=== PATIENT | male | born 1950 | race Caucasian/White ===

== ENCOUNTER 2016-03-17 09:36 | Emergency (ER) ==
[2016-03-17 09:48] VITALS: BP 149/78
--- NOTE | 2016-03-17 09:57 | PROVIDER DOCUMENTATION ---
HPI-Rash/Wound/ReCheck - General Chief Complaint: Suture/Staple Removal Stated Complaint: stitches removal Time Seen by Provider: 03/17/16 09:52 Source: patient Allergies/Adverse Reactions: Allergies Allergy/AdvReac Type Severity Reaction Status Date / Time No Known Allergies Allergy Verified 03/07/16 04:31 Home Medications: Lisinopril 20 mg PO DAILY 03/07/16 - History of Present Illness-Dermatology Nature of Presenting Problem: Pt presents today for staple removal. Well healed. Location: reports: scalp Onset/Duration: reports: 1 week ago Context/Associated Symptoms: reports: laceration - Recheck Treated days ago.: 7 Previous Treatment: laceration repair Antibiotics given: none Symptoms since procedure:: reports: no complaints Review of Systems - Adult - REVIEW OF SYSTEMS - ADULT Constitutional: reports: no symptoms reported. denies: chills, fever Eyes: reports: no symptoms reported. denies: discharge, dry eyes Ears, Nose, Mouth & Throat: reports: no symptoms reported. denies: ear discharge, ear pain Cardiovascular: reports: no symptoms reported. denies: chest pain, edema Respiratory: reports: no symptoms reported. denies: chronic cough, cough Gastrointestinal: reports: no symptoms reported. denies: abdominal pain, hematemesis Genitourinary: reports: no symptoms reported. denies: dysuria, discharge Musculoskeletal: reports: no symptoms reported. denies: bone pain, back pain Integumentary: reports: see HPI. denies: mole changes, nail changes Neurological: reports: no symptoms reported. denies: ataxia, dizziness/vertigo Psychiatric: reports: no symptoms reported. denies: anxiety, anti-depressant use Endocrine: reports: no symptoms reported Hematologic/Lymphatic: reports: no symptoms reported Allergic/Immunologic: reports: no symptoms reported All Other Systems: Reviewed and Negative Past History - Adult - PAST MEDICAL HISTORY-ADULT Review of Records: reports: Old Records Reviewed, Nursing Assessment Review, Medications Reviewed, Social history reviewed & non-contributory. Major Childhood Illnesses: reports: denies history Cardiovascular: reports: denies history Respiratory: reports: denies history Gastrointestinal: reports: denies history Obstetrical/Gynecological: reports: denies history Genitourinary: reports: denies history Musculoskeletal: reports: denies history Neurological: reports: denies history Endocrine/Immune: reports: denies history Other Conditions: reports: denies history Physical Exam-General - PHYSICAL EXAM-ADULT Initial Vital Signs Reviewed: Yes - CONSTITUTIONAL General Appearance: appears well, alert, no apparent distress - EYES Eyes: PERRL/EOMI, pink conjunctivae - HEAD, EARS, NOSE, MOUTH & THROAT HENMT: normocephalic/atraumatic, moist mucous membranes, normal ENT inspection - NECK Neck: non-tender, full range of motion, normal inspection - RESPIRATORY Respiratory: chest non-tender, lungs clear, normal breath sounds - CARDIOVASCULAR Cardiovascular: normal peripheral pulses, regular rate, rhythm, no edema - GASTROINTESTINAL (ABDOMEN) Abdominal Exam: normal bowel sounds, non tender, soft - LYMPHATIC Lymphatic: no adenopathy - MUSCULOSKELETAL Back Exam: normal inspection, no CVA tenderness, no vertebral tenderness Extremity: normal range of motion, non-tender, normal gait - SKIN Integumentary: normal turgor, warm/dry, laceration(s) - NEUROLOGIC Neurologic: grossly normal, no motor/sensory deficits - PSYCHIATRIC Psych/Mental Status: normal mood/affect, normal thought content, normal thought process, oriented x 3 Progress - PLAN OF CARE/RESULTS Progress/Plan/Lab Results: Vital Signs Temp Pulse Resp BP Pulse Ox 03/17/16 09:46 97.7 F 71 16 149/78 95 No Known Allergies Allergy (Verified 03/07/16 04:31) Lisinopril 20 mg PO DAILY 03/07/16 Oxycodone/APAP 5 mg/325 mg [Percocet-5] 1 each PO Q4H PRN PRN #10 tablet Sulfamethoxazole/Trimethoprim [Bactrim Ds Tablet] 2 each PO BID #40 tablet 03/07 Departure - Departure Time of Disposition Order: 09:57 DIAGNOSIS: Encounter for removal of colette Disposition: HOME 01 Certified Medical Emergency: Urgent Condition: Good Additional Instructions: Keep area clean and dry. Follow up with your primary care provider. ED Follow Up Instructions: You have been treated by a care provider in the Emergency Department. These instructions are being provided to you so you can have an understanding of how to care for yourself upon discharge. Upon discharge from the Emergency Department, you are responsible for making arrangements for follow-up care by a physician of your choice. Take all prescribed medications as directed. Return to the Emergency Department immediately for any new or worsening symptoms. You may call the Physician Referral phone number at [phone] to obtain a list of Physicians who are taking new patients. Referrals: Lucien Marrufo MD [Primary Care Provider] - Attestation - Physician/ Mid-level Attestation Patient care was provided by Mid-level provider (SOLE CUTTER/PA):: Yes Mid-level provider:: Tanner Lopez Mid-level documentation review:: The Mid-level provider documentation, treatment plan and medical decision making was reviewed by the physician who agrees with all treatment and medical decision making by the MLP.
== END 2016-03-17 10:03 | disposition home or self-care (01) ==
LOC: ED 09:36
DX: S01.01XD Laceration without foreign body of scalp, subsequent encounter (principal); Z79.899 Other long term (current) drug therapy
CPT/HCPCS: 99282

== ENCOUNTER 2016-05-26 11:55 | Emergency (ER) ==
[2016-05-26 12:03] VITALS: BP 167/106
== END 2016-05-26 13:29 | disposition left against medical advice (07) ==
LOC: ED 11:55
DX: M25.512 Pain in left shoulder (principal); Z53.21 Procedure and treatment not carried out due to patient leaving prior to being seen by health care provider; X58.XXXA Exposure to other specified factors, initial encounter

== ENCOUNTER 2016-05-26 21:03 | Emergency (ER) ==
--- NOTE | 2016-05-26 22:08 | PROVIDER DOCUMENTATION ---
HPI-Musculoskeletal Pain/Inj - GENERAL Source: patient - HX OF PRESENT ILLNESS-MUSKULOSKELTAL Quality of Pain: reports: aching Severity in ED: mild Onset/Duration: other (3 weeks) Timing: still present Any recent injury?: Yes Locality of Occurance: Other (gym) Similar Symptoms Previously?: Yes Recently seen or treated by another doctor?: Yes - UPPER EXTREMITY PAIN/INJURY Extremities Pain Location: shoulder: left Context / Method of Injury: reports: unknown Associated Symptoms: reports: denies symptoms <Irina Costa - Last Filed: 05/26/16 22:09> <Yaya Davila - Last Filed: 05/26/16 22:23> - GENERAL Chief Complaint: Extremity Pain Stated Complaint: LT SHOULDER PAIN Time Seen by Provider: 05/26/16 22:02 - HX OF PRESENT ILLNESS-MUSKULOSKELTAL Nature of Presenting Problem: 66 year old M presents to the ED with a cc of left shoulder pain x3 weeks. PT states that the day before the pain began he lifted weights. PT states that he was seen at Urgent Care and prescribed Ibuprofen 800. PT states that he had relief but states that it has now stopped working. PT states that he believes he re-injured it 3 days ago. PT states that it is painful to raise arm above head. (Irina Costa) Review of Systems - Adult - REVIEW OF SYSTEMS - ADULT Constitutional: denies: chills, fever Eyes: reports: no symptoms reported Ears, Nose, Mouth & Throat: reports: no symptoms reported Cardiovascular: reports: no symptoms reported Respiratory: reports: no symptoms reported Gastrointestinal: reports: no symptoms reported Genitourinary: reports: no symptoms reported Musculoskeletal: reports: muscle aches. denies: muscle weakness Integumentary: denies: skin sores/ulcer, skin thickening Neurological: reports: no symptoms reported Psychiatric: reports: no symptoms reported Endocrine: reports: no symptoms reported Hematologic/Lymphatic: reports: no symptoms reported Allergic/Immunologic: reports: no symptoms reported All Other Systems: Reviewed and Negative <Irina Costa - Last Filed: 05/26/16 22:09> Past History - Adult - PAST MEDICAL HISTORY-ADULT Review of Records: reports: Nursing Assessment Review, Medications Reviewed Major Childhood Illnesses: reports: denies history Cardiovascular: reports: denies history Respiratory: reports: denies history Gastrointestinal: reports: denies history Obstetrical/Gynecological: reports: denies history Genitourinary: reports: denies history Musculoskeletal: reports: denies history Neurological: reports: denies history Endocrine/Immune: reports: denies history Other Conditions: reports: denies history - PRIOR SURGERIES/PROCEDURES Surgical/Procedure History: reports: other (eye lid surgery) - IMMUNIZATION STATUS Childhood Immunizations: See Nurse Assessment Flu Vaccine: See Nurse Assessment - SOCIAL HISTORY Smoking: non-smoker Substance Use: none/never Alcohol Use Frequency: occasionally <Irina Costa - Last Filed: 05/26/16 22:09> Physical Exam-Injury Related - Physical Exam-Injury Related Initial Vital Signs Reviewed: Yes General Appearance: appears well, alert, no apparent distress Respiratory: no respiratory distress Cardiovascular: regular rate, rhythm Extremity: tenderness (left posterior lateral shoulder), other (limited abduction which recreates pain) Integumentary: normal color, warm/dry Psych/Mental Status: normal mood/affect, normal thought content, normal thought process, oriented x 3 <Irina Costa - Last Filed: 05/26/16 22:09> Progress <Irian Costa - Last Filed: 05/26/16 22:09> <Yaya Davila - Last Filed: 05/26/16 22:23> - PLAN OF CARE/RESULTS Progress/Plan/Lab Results: plan of care: medication Orders Category Date Time Status Bupivacaine Pf 0.5% [Marcaine 0.5% Pf] Med 05/26/16 22:10 Once 10 ml INJ NOW ONE Hydrocodone/APAP 7.5 mg/325 mg [[place]-7.5] Med 05/26/16 22:10 Once 1 each PO NOW ONE Triamcinolone [Kenalog-40] Med 05/26/16 22:10 Once 40 mg IM NOW ONE Vital Signs - 24 hr 05/26/16 21:07 Temperature 98.1 F Pulse Rate 77 Respiratory 18 Rate Blood Pressure 194/116 O2 Sat by Pulse 100 Oximetry Pt given results and will be d/c home w/ rx to follow up with PCP. Pt verbally understood instructions. PT remained clinically stable throughout the course of the ED stay and will return if symptoms worsen. (Irina Costa) Procedures - ADDITIONAL PROCEDURES Additional Procedure: Injection of Bursa/Joint Anesthetic: 0.5%, Bupivicaine/Marcaine (and Kenalog-40) Procedure Comment: PT tolerated well <Irina Costa - Last Filed: 05/26/16 22:09> Departure <Irina Costa - Last Filed: 05/26/16 22:09> - Departure Time of Disposition Order: 22:21 Certified Medical Emergency: Emergent <Yaya Davila - Last Filed: 05/26/16 22:23> - Departure DIAGNOSIS: Impingement syndrome of left shoulder Disposition: HOME 01 Condition: Fair Additional Instructions: call Dr Broderick, the orthopedist to make a follow up visit ED Follow Up Instructions: You have been treated by a care provider in the Emergency Department. These instructions are being provided to you so you can have an understanding of how to care for yourself upon discharge. Upon discharge from the Emergency Department, you are responsible for making arrangements for follow-up care by a physician of your choice. Take all prescribed medications as directed. Return to the Emergency Department immediately for any new or worsening symptoms. You may call the Physician Referral phone number at [phone] to obtain a list of Physicians who are taking new patients. Prescriptions: Hydrocodone/Acetaminophen [[place] 7.5-325 Tablet] 1 each PO Q4-6H PRN PRN #20 tablet PRN Reason: Pain Referrals: Lucien Marrufo MD [Primary Care Provider] - Bipin Broderick MD [STAFF PHYSICIAN] - Attestation - Scribe Verification/Attestation Scribe:: Irina Costa Acting as Scribe for:: Yaya Davila Scribe documention review:: This chart was documented by a scribe and accurately reflects the service the provider performed and the decisions made by the provider. <Irina Costa - Last Filed: 05/26/16 22:09> Physician Attestation
[2016-05-26] MEDS ORDERED: NORCO-7.5 PO ONE (22:10)
[2016-05-26] MEDS ORDERED: KENALOG-40 IM ONE (22:10)
[2016-05-26] MEDS ORDERED: MARCAINE 0.5% PF INJ ONE (22:10)
[2016-05-26 22:30] VITALS: BP 168/98
== END 2016-05-26 22:30 | disposition home or self-care (01) ==
LOC: ED 21:03
DX: M75.42 Impingement syndrome of left shoulder (principal); M25.512 Pain in left shoulder; M79.1 Myalgia; Z79.899 Other long term (current) drug therapy
CPT/HCPCS: J3301; S0020